=== PATIENT | male | born 1955 | race Caucasian/White ===

== ENCOUNTER 2016-06-15 19:10 | Inpatient (IN) | payer MEDICARE ==
[~2016-06-15] VITALS: Ht 167.6 cm; Wt 58.1 kg
[2016-06-15] MEDS ORDERED: NALOXONE HCL 0.4 MG/ML AMPUL ONE ×2 (19:58→21:25)
[2016-06-15] MEDS ORDERED: NALOXONE HCL 0.4 MG/ML AMPUL IV ONE (20:00)
[2016-06-15] MEDS ORDERED: IV SET PRIMARY 1 EA INFUS.SET MC ONE (20:46)
[2016-06-15] MEDS ORDERED: IV NS 0.9% 500 ML IV ONE (20:46)
[2016-06-15 20:59] LABS: BASOPHILS # (AUTO) 0.2 /CMM (0.0-0.2); DIFF TOTAL % 100 %; EOSINOPHILS % (AUTO) 0.2 % (0.0-6.0); HEMATOCRIT 27 % (39-51); HEMOGLOBIN 8.3 g/dL (13.5-17.5); LYMPHOCYTES # (AUTO) 0.7 /CMM (0.8-4.8); LYMPHOCYTES % (AUTO) 4.6 % (20.0-44.0); MEAN CORPUSCULAR HEMOGLOBIN 21 PG (26.0-33.0); MEAN CORPUSCULAR HGB CONC 31 g/dl (31.0-36.0); MEAN CORPUSCULAR VOLUME 68 fL (80-96); MONOCYTES # (AUTO) 0.4 /CMM (0.1-1.30); MONOCYTES % (AUTO) 2.6 % (2.0-12.0); NEUTROPHILS # (AUTO) 14.1 /CMM (1.8-8.9); NEUTROPHILS % (AUTO) 91.6 % (43.0-81.0); PLATELET COUNT (AUTO) 346 /CMM (150-450); RED BLOOD CELL COUNT(AUTO) 3.95 MIL/uL (4.5-6.0); WHITE BLOOD COUNT (AUTO) 15.4 K/uL (4.3-11.0)
[2016-06-15] MEDS ORDERED: NALOXONE HCL 2 MG in IV D5W 245 ML IV PRN ×2 (21:00→23:00)
[2016-06-15] MEDS ORDERED: IV NS 0.9% 500 ML BAG IV ONE (21:00)
[2016-06-15 21:16] LABS: TROPONIN I < 0.017 ng/mL (0.00-0.056)
[2016-06-15 21:20] LABS: ANION GAP 17 (5-14); CALCIUM, SERUM 9.2 mg/dL (8.5-10.1); CARBON DIOXIDE 23 mmol/L (21-32); CHLORIDE 98 mmol/L (98-107); CREATININE 2.1 mg/dL (0.6-1.3); GFR 32 mL/min (>60); GLUCOSE 108 mg/dL (74-106); POTASSIUM 4.8 mmol/L (3.5-5.1); SODIUM SERUM 133 mmol/L (136-145); UREA NITROGEN, BLOOD 67 mg/dL (7-18)
[2016-06-15] MEDS ORDERED: IV D5W 0 ML IV ONE (21:26)
[2016-06-15] MEDS ORDERED: IV SET PRIMARY PUMP SET 1 EA INFUS.SET MC ONE (21:26)
[2016-06-15] MEDS ORDERED: IV D5W 250 ML IV ONE (21:30)
[2016-06-15 21:37] LABS: LACTIC ACID 1.4 mmol/L (0.4-2.0)
[2016-06-15 21:38] LABS: LYMPHOCYTES % (MANUAL) 3 % (16-48); PLATELET ESTIMATE ADEQUATE
[2016-06-15 21:40] LABS: ANISOCYTOSIS 1+; HYPOCHROMASIA SLT
[2016-06-15] MEDS ORDERED: ACETAMINOPHEN 325 MG TABLET PO PRN (23:00)
[2016-06-15] MEDS: ENOXAPARIN SODIUM 40 MG/0.4 ML DISP.SYRIN SQ SCH (23:00)
[2016-06-15] MEDS ORDERED: MAG HYDROX/AL HYDROX/SIMETH 30 ML UDC PO PRN (23:00)
[2016-06-15] MEDS ORDERED: ONDANSETRON HCL/PF 4 MG/2 ML VIAL IVP PRN (23:00)
[2016-06-15] MEDS ORDERED: LEVOFLOXACIN 750 MG /D5W 150ML 750 MG in PREMIX 1 EA IV SCH (23:00)
[2016-06-15] MEDS ORDERED: MAGNESIUM HYDROXIDE 30 ML UDC PO PRN (23:00)
[2016-06-15] MEDS ORDERED: ZOLPIDEM TARTRATE 5 MG TABLET PO PRN (23:00)
[2016-06-15] MEDS ORDERED: Z GUARD REMEDY 2 OZ OINT TP PRN (23:00)
[2016-06-15 23:32] VITALS: BP 105/54
[2016-06-15 23:42] VITALS: BP 105/54
[2016-06-16] VITALS (74 sets, daily range): BP systolic 37–146; BP diastolic 22–78
[2016-06-16] MEDS ORDERED: PIPERACILLIN /TAZOBACTAM 3.375 G VIAL IV ONE ×2 (00:06→04:48)
[2016-06-16] MEDS ORDERED: IV D5W 50 ML IV ONE ×2 (00:07→04:48)
[2016-06-16] MEDS ORDERED: IV SET PRIMARY PUMP SET 1 EA INFUS.SET MC ONE ×4 (00:07→13:10)
[2016-06-16] MEDS ORDERED: IV NS 0.9% 1,000 ML ONE (00:07)
[2016-06-16] MEDS ORDERED: SECONDARY IV SET 1 EA INFUS.SET MC ONE (00:08)
[2016-06-16] MEDS ORDERED: LEVOFLOXACIN 750 MG /D5W 150ML 150 ML IV ONE (00:14)
[2016-06-16] MEDS ORDERED: ONDANSETRON HCL/PF 4 MG/2 ML VIAL ONE (00:23)
[2016-06-16] MEDS: IV NS 0.9% 1,000 ML IV PRN ×4 (00:25→22:17)
[2016-06-16] MEDS: PIPERACILLIN /TAZOBACTAM 3.375 G in IV D5W 50 ML IV SCH ×4 (00:27→17:14)
[2016-06-16] MEDS: ENOXAPARIN SODIUM 40 MG/0.4 ML DISP.SYRIN SQ SCH (00:28)
[2016-06-16] MEDS ORDERED: IV D5W 250 ML IV ONE (02:55)
[2016-06-16 04:51] LABS: BASOPHILS % (AUTO) 0.2 % (0.0-2.0); DIFF TOTAL % 100 %; EOSINOPHILS % (AUTO) 0.2 % (0.0-6.0); LYMPHOCYTES # (AUTO) 0.4 /CMM (0.8-4.8); LYMPHOCYTES % (AUTO) 3.9 % (20.0-44.0); MEAN CORPUSCULAR HEMOGLOBIN 21 PG (26.0-33.0); MEAN CORPUSCULAR HGB CONC 31 g/dl (31.0-36.0); MEAN CORPUSCULAR VOLUME 68 fL (80-96); MONOCYTES # (AUTO) 0.6 /CMM (0.1-1.30); MONOCYTES % (AUTO) 5.8 % (2.0-12.0); NEUTROPHILS # (AUTO) 9.9 /CMM (1.8-8.9); NEUTROPHILS % (AUTO) 89.9 % (43.0-81.0); PLATELET COUNT (AUTO) 345 /CMM (150-450); RED BLOOD CELL COUNT(AUTO) 2.48 MIL/uL (4.5-6.0)
[2016-06-16 04:52] LABS: HEMATOCRIT 17 % (39-51)
[2016-06-16 04:54] LABS: HEMOGLOBIN 5.3 g/dL (13.5-17.5)
[2016-06-16 05:01] LABS: CALCIUM, SERUM 7.7 mg/dL (8.5-10.1); CREATININE 1.6 mg/dL (0.6-1.3); PHOSPHORUS 2.8 mg/dL (2.5-4.9); POTASSIUM 4.9 mmol/L (3.5-5.1)
[2016-06-16] MEDS ORDERED: PANTOPRAZOLE 40 MG VIAL ONE (05:22)
[2016-06-16] MEDS ORDERED: IV NS 0.9% 500 ML IV ONE (05:22)
[2016-06-16] MEDS: PANTOPRAZOLE 80 MG in IV NS 0.9% 500 ML IV PRN ×3 (05:33→22:17)
[2016-06-16 05:43] LABS: ANISOCYTOSIS 2+; BAND % (MANUAL) 4 % (0.0-5.0); BASOPHILS % (MANUAL) 0 % (0.0-2.0); EOSINOPHILS % (MANUAL) 0 % (0-4); HYPOCHROMASIA 3+; LYMPHOCYTES % (MANUAL) 2 % (16-48); MICROCYTOSIS 2+; PLATELET ESTIMATE ADEQUATE
[2016-06-16] MEDS ORDERED: SENN8.6T6 PO (07:59)
[2016-06-16] MEDS ORDERED: BISA10SU8 RC (07:59)
[2016-06-16] MEDS ORDERED: ONDA-25 PO (07:59)
[2016-06-16] MEDS ORDERED: LISI-603 PO (07:59)
[2016-06-16] MEDS ORDERED: ASCO500T9 PO (07:59)
[2016-06-16] MEDS ORDERED: FERR325T28 PO (07:59)
[2016-06-16] MEDS ORDERED: NA P133E RC (07:59)
[2016-06-16] MEDS ORDERED: ACET-868 PO (07:59)
[2016-06-16] MEDS ORDERED: HYDR4TAB57 PO (07:59)
[2016-06-16] MEDS ORDERED: MAGN400O6 PO (07:59)
[2016-06-16] MEDS ORDERED: DIAZ10TA4 PO (07:59)
[2016-06-16] MEDS ORDERED: PANT40TA4 PO (07:59)
[2016-06-16] MEDS ORDERED: HEPARIN SODIUM, PORCINE 5000 UNITS/1 ML VIAL SQ SCH (09:00)
[2016-06-16] MEDS ORDERED: PANTOPRAZOLE 40 MG VIAL IV SCH (09:00)
[2016-06-16] MEDS ORDERED: IV NS 0.9% 250 ML IV ONE ×2 (10:10→17:48)
[2016-06-16] MEDS ORDERED: BLOOD IV SET 1 EA INFUS.SET MC ONE ×2 (10:10→17:48)
[2016-06-16] MEDS ORDERED: Magnesium 1GM/D5W 100ML PREMIX 100 ML IV SCH (13:01)
[2016-06-16 15:59] LABS: ABG BASE EXCESS -6.9 mmol/L; ABG HCO3 18.4 mmol/L; ABG PCO2 35.8 mmHg (35.0-45.0); ABG PH 7.329 (7.350-7.450); ABG TOTAL HEMOGLOBIN 7.3 G/dL (13.5-18.0); ALLEN TEST Pass; AaDO2 195.9 mmHg; O2Hb 91.1 % (94.0-97.0)
[2016-06-16] MEDS: IPRATROPIUM NEB FS 0.5 MG/2.5 ML AMPUL.NEB NEB SCH (16:29)
[2016-06-16] MEDS: ALBUTEROL HALF STRENGTH 1.25 MG/3 ML VIAL.NEB NEB SCH (16:29)
[2016-06-17] VITALS (23 sets, daily range): BP systolic 113–171; BP diastolic 57–90
[2016-06-17] MEDS: PIPERACILLIN /TAZOBACTAM 3.375 G in IV D5W 50 ML IV SCH ×4 (00:37→17:39)
[2016-06-17 05:02] LABS: BASOPHILS % (AUTO) 0.1 % (0.0-2.0); DIFF TOTAL % 100 %; EOSINOPHILS # (AUTO) 0.1 /CMM (0.0-0.7); EOSINOPHILS % (AUTO) 0.9 % (0.0-6.0); HEMATOCRIT 23 % (39-51); HEMOGLOBIN 7.4 g/dL (13.5-17.5); LYMPHOCYTES # (AUTO) 0.7 /CMM (0.8-4.8); LYMPHOCYTES % (AUTO) 5.8 % (20.0-44.0); MEAN CORPUSCULAR HEMOGLOBIN 24 PG (26.0-33.0); MEAN CORPUSCULAR HGB CONC 32 g/dl (31.0-36.0); MEAN CORPUSCULAR VOLUME 77 fL (80-96); MONOCYTES # (AUTO) 0.9 /CMM (0.1-1.30); MONOCYTES % (AUTO) 7.6 % (2.0-12.0); NEUTROPHILS # (AUTO) 10.2 /CMM (1.8-8.9); NEUTROPHILS % (AUTO) 85.6 % (43.0-81.0); PLATELET COUNT (AUTO) 305 /CMM (150-450); RED BLOOD CELL COUNT(AUTO) 3.07 MIL/uL (4.5-6.0); WHITE BLOOD COUNT (AUTO) 11.9 K/uL (4.3-11.0)
[2016-06-17 05:26] LABS: INR 1.06 (0.87-1.13); PROTHROMBIN TIME 11.5 SECS (9.5-12.7)
[2016-06-17 05:28] LABS: CALCIUM, SERUM 7.5 mg/dL (8.5-10.1); CREATININE 1.1 mg/dL (0.6-1.3); PHOSPHORUS 2.3 mg/dL (2.5-4.9); POTASSIUM 4.3 mmol/L (3.5-5.1)
[2016-06-17 05:55] LABS: ANISOCYTOSIS 2+; HELMET CELLS 1+; HYPOCHROMASIA 2+; MICROCYTOSIS 1+; TEAR DROP CELLS 1+
[2016-06-17 05:56] LABS: PLATELET ESTIMATE ADEQUATE
[2016-06-17] MEDS: ALBUTEROL HALF STRENGTH 1.25 MG/3 ML VIAL.NEB NEB SCH ×6 (07:35→22:58)
[2016-06-17] MEDS: IPRATROPIUM NEB FS 0.5 MG/2.5 ML AMPUL.NEB NEB SCH ×6 (07:35→22:58)
[2016-06-17] MEDS: IV NS 0.9% 1,000 ML IV PRN (08:55)
[2016-06-17] MEDS: PANTOPRAZOLE 80 MG in IV NS 0.9% 500 ML IV PRN ×2 (08:55→19:50)
[2016-06-17] MEDS ORDERED: IV NS 0.9% 1,000 ML IV PRN (09:14)
[2016-06-17] MEDS ORDERED: HYDROMORPHONE 1 MG/1 ML DISP.SYRIN IV PRN (10:00)
[2016-06-17] MEDS ORDERED: Sodium Phosphate 15 MMOL in IV D5W 250 ML IV ONE (10:00)
[2016-06-17] MEDS ORDERED: HYDROMORPHONE 1 MG/1 ML DISP.SYRIN IV ONE (10:00)
[2016-06-17] MEDS ORDERED: SECONDARY IV SET 1 EA INFUS.SET MC ONE ×2 (10:05→10:54)
[2016-06-17] MEDS ORDERED: IV SET PRIMARY PUMP SET 1 EA INFUS.SET MC ONE ×3 (10:05→21:30)
[2016-06-17] MEDS: IV D5/ 0.9% NACL 1,000 ML IV PRN ×2 (10:09→19:15)
[2016-06-17] MEDS: Magnesium 1GM/D5W 100ML PREMIX 100 ML IV SCH ×2 (10:09→10:58)
[2016-06-17] MEDS: Thiamine 100 MG in IV D5W 50 ML IV SCH (10:52)
[2016-06-17] MEDS: Folic acid 1 MG in IV D5W 50 ML IV SCH (11:22)
[2016-06-17 14:35] LABS: ALBUMIN 1.7 g/dL (3.4-5.0); BILIRUBIN,DIRECT 0.2 mg/dL (0.0-0.2); BILIRUBIN,TOTAL 0.6 mg/dL (0.2-1.0); INDIRECT BILIRUBIN 0.4 mg/dL (0.0-1.1)
[2016-06-17] MEDS ORDERED: PEG 3350/NA SULF,BICARB,CL/KCL 4,000 ML BOTTLE PO ONE (20:00)
[2016-06-17] MEDS ORDERED: NALOXONE HCL 0.4 MG/ML AMPUL ONE (20:08)
[2016-06-17] MEDS ORDERED: NALOXONE HCL 0.4 MG/ML AMPUL IV STA (20:17)
[2016-06-17 21:35] LABS: ABG BASE EXCESS -9.4 mmol/L; ABG HCO3 21.5 mmol/L; ABG PCO2 79.4 mmHg (35.0-45.0); ABG PH 7.051 (7.350-7.450); ABG PO2 114.9 mmHg (75.0-100.0); ABG TOTAL HEMOGLOBIN 9.8 G/dL (13.5-18.0); ALLEN TEST Pass; AaDO2 518.7 mmHg
[2016-06-17] MEDS: NALOXONE HCL 2 MG in IV D5W 245 ML IV PRN (22:03)
[2016-06-17] MEDS ORDERED: LEVOFLOXACIN 750 MG /D5W 150ML 750 MG in PREMIX 1 EA IV SCH (23:00)
[2016-06-18] VITALS (13 sets, daily range): BP systolic 128–181; BP diastolic 52–83
[2016-06-18] MEDS: NALOXONE HCL 2 MG in IV D5W 245 ML IV PRN (00:46)
[2016-06-18] MEDS: PIPERACILLIN /TAZOBACTAM 3.375 G in IV D5W 50 ML IV SCH ×3 (00:47→12:00)
[2016-06-18] MEDS ORDERED: ZOLPIDEM TARTRATE 5 MG TABLET ONE (01:55)
[2016-06-18] MEDS ORDERED: ZOLPIDEM TARTRATE 5 MG TABLET PO PRN (02:00)
[2016-06-18] MEDS: ALBUTEROL HALF STRENGTH 1.25 MG/3 ML VIAL.NEB NEB SCH ×3 (03:23→11:30)
[2016-06-18] MEDS: IPRATROPIUM NEB FS 0.5 MG/2.5 ML AMPUL.NEB NEB SCH ×3 (03:23→11:30)
[2016-06-18] MEDS: IV D5/ 0.9% NACL 1,000 ML IV PRN (04:07)
[2016-06-18] MEDS: PANTOPRAZOLE 80 MG in IV NS 0.9% 500 ML IV PRN (04:52)
[2016-06-18 09:48] LABS: DIFF TOTAL % 100 %; EOSINOPHILS # (AUTO) 0.1 /CMM (0.0-0.7); EOSINOPHILS % (AUTO) 0.6 % (0.0-6.0); HEMATOCRIT 23 % (39-51); HEMOGLOBIN 7.5 g/dL (13.5-17.5); LYMPHOCYTES # (AUTO) 0.6 /CMM (0.8-4.8); LYMPHOCYTES % (AUTO) 4.6 % (20.0-44.0); MEAN CORPUSCULAR HEMOGLOBIN 25 PG (26.0-33.0); MEAN CORPUSCULAR HGB CONC 33 g/dl (31.0-36.0); MEAN CORPUSCULAR VOLUME 75 fL (80-96); MONOCYTES # (AUTO) 0.8 /CMM (0.1-1.30); MONOCYTES % (AUTO) 6.4 % (2.0-12.0); NEUTROPHILS % (AUTO) 88.4 % (43.0-81.0); PLATELET COUNT (AUTO) 408 /CMM (150-450); RED BLOOD CELL COUNT(AUTO) 3.05 MIL/uL (4.5-6.0); WHITE BLOOD COUNT (AUTO) 12.4 K/uL (4.3-11.0)
[2016-06-18 10:05] LABS: CALCIUM, SERUM 7.8 mg/dL (8.5-10.1); PHOSPHORUS 1.9 mg/dL (2.5-4.9); POTASSIUM 3.6 mmol/L (3.5-5.1)
[2016-06-18] MEDS ORDERED: SECONDARY IV SET 1 EA INFUS.SET MC ONE (11:10)
[2016-06-18] MEDS: Folic acid 1 MG in IV D5W 50 ML IV SCH (11:15)
[2016-06-18] MEDS: Thiamine 100 MG in IV D5W 50 ML IV SCH (11:15)
[2016-06-19] MEDS ORDERED: PANTOPRAZOLE 40 MG TABLET.DR PO SCH (07:30)
== END 2016-06-18 13:43 | disposition left against medical advice (07) | DRG 871 ==
LOC: ER 19:13 → ICU 22:29
PROVIDERS: ADMIT Family Medicine; ATTEND Family Medicine
PROC: 30233N1 Transfusion of Nonautologous Red Blood Cells into Peripheral Vein, Percutaneous Approach (ICD-10-PCS; 2016-06-16)
PROC: 05H533Z Insertion of Infusion Device into Right Subclavian Vein, Percutaneous Approach (ICD-10-PCS; 2016-06-16)
PROC: 0DB58ZX Excision of Esophagus, Via Natural or Artificial Opening Endoscopic, Diagnostic (ICD-10-PCS; principal; 2016-06-17 11:30)
DX: A41.9 Sepsis, unspecified organism (principal); N17.0 Acute kidney failure with tubular necrosis; J69.0 Pneumonitis due to inhalation of food and vomit; G92 Toxic encephalopathy; J96.91 Respiratory failure, unspecified with hypoxia; K27.4 Chronic or unspecified peptic ulcer, site unspecified, with hemorrhage; K22.11 Ulcer of esophagus with bleeding; E87.1 Hypo-osmolality and hyponatremia; J90 Pleural effusion, not elsewhere classified; D50.9 Iron deficiency anemia, unspecified; F11.10 Opioid abuse, uncomplicated; F17.210 Nicotine dependence, cigarettes, uncomplicated; G89.4 Chronic pain syndrome; I10 Essential (primary) hypertension; T40.2X4A Poisoning by other opioids, undetermined, initial encounter; Y92.89 Other specified places as the place of occurrence of the external cause; D72.825 Bandemia; F10.20 Alcohol dependence, uncomplicated; K44.9 Diaphragmatic hernia without obstruction or gangrene; R65.20 Severe sepsis without septic shock
CPT/HCPCS: 36415; 36600; 70450-TC; 71010-TC; 80048-TC; 80076-TC; 82746; 82803-TC; 82962-TC; 83540-TC; 83605-TC; 83735-TC; 84100-TC; 84484-TC; 85025-TC; 85610-TC; 85730-TC; 86850-TC; 86921-TC; 87040-TC; 87081-TC; 88305-TC; 88313-TC; 88342; 92611-TC; 94799-TC; A4216; A4606; A6402; A9563; C9113; J1170; J1956; J2310; J2405; J2543; J3411; J3475; J3490; J7030; J7040; J7042; J7050; J7060; P9016-BL; Z7610

== ENCOUNTER 2017-07-23 22:25 | Inpatient (IN) | payer MEDICARE ==
[~2017-07-23] VITALS: Ht 177.8 cm; Wt 55.8 kg
[2017-07-23 22:00] VITALS: BP 126/72
--- NOTE | 2017-07-23 22:15 | NUR ---
RECIEVED FROM [facility] AWAKE AND ALERT ORIENTATED X4 FALLS TO SLEEP DURING CONVERSATION. WHEN AWAKE WILL ASK MULTIPLE TIMES i NEED SOMETHING FOR PAIN. REMINDINDING HIM FREQUENTLY ABOUT THE PROCESS I ADMIT HIM I CALL THE MD PHARMACY PLACES THE ORDER AND I WILL GIVE IT. THE MD CAME TO SEE HIM AND ORDERED MEDICATIONS.
[~2017-07-23 22:25] MED LIST: ACET-868 PO; ASCO500T9 PO; BISA10SU8 RC; DIAZ10TA4 PO; FERR325T28 PO; HYDR4TAB57 PO; LISI-603 PO; MAGN400O6 PO; NA P133E RC; ONDA4TAB10 PO; PANT40TA4 PO; SENN-167 PO
[2017-07-23 23:21] VITALS: BP 126/72
[2017-07-24] MEDS ORDERED: ONDANSETRON HCL/PF 4 MG/2 ML VIAL IVP PRN (01:30)
[2017-07-24] MEDS ORDERED: IPRATROPIUM NEB FS 0.5 MG/2.5 ML AMPUL.NEB NEB PRN (01:30)
[2017-07-24] MEDS ORDERED: DIAZEPAM 5 MG/ML 2 ML DISP.SYRIN IM PRN (01:30)
[2017-07-24] MEDS ORDERED: ALBUTEROL FS 2.5 MG/3 ML VIAL.NEB NEB PRN (01:30)
[2017-07-24] MEDS ORDERED: ACETAMINOPHEN 650 MG/SUPP.RECT RC PRN (01:30)
[2017-07-24] MEDS ORDERED: HYDROMORPHONE INJ 2 MG/ML DISP.SYRIN ONE ×2 (02:06→04:59)
[2017-07-24] MEDS: IV D5/ 0.9% NACL 1,000 ML IV SCH ×2 (02:10→15:13)
[2017-07-24] MEDS: HYDROMORPHONE INJ 2 MG/ML DISP.SYRIN IV PRN ×2 (02:11→05:15)
[2017-07-24] MEDS: ALBUTEROL FS 2.5 MG/3 ML VIAL.NEB NEB SCH ×6 (02:49→23:30)
[2017-07-24 06:59] LABS: ALBUMIN 2.4 g/dL (3.4-5.0); BILIRUBIN,TOTAL 0.2 mg/dL (0.2-1.0); CALCIUM, SERUM 8.4 mg/dL (8.5-10.1); CREATININE 0.9 mg/dL (0.6-1.3); MAGNESIUM 1.8 mg/dL (1.8-2.4); PHOSPHORUS 3.2 mg/dL (2.5-4.9); POTASSIUM 4.7 mmol/L (3.5-5.1); TOTAL PROTEIN, SERUM 6.8 g/dL (6.4-8.2)
--- NOTE | 2017-07-24 07:23 | NUR ---
pATIENTS IV LEFT AC INFILTRATED [address] A NEW IV SITE ER NURSE ATTEMPTED UNSUCCESSFULLY NURSE STARTED 24 G RT HAND IV CONTINUED AND iv DILADID GIVEN. PATIENT IS VERBALLY CONDESENDING WHEN THINGS AROUND HIM ARE NOT GOING ON TIME THEN WILL PRAISE AND THANKYOU WHEN THINGS GO CORRECT. MEDICATED ORDERED. RIGHT LEG BENT AT THE KNEE NOT ABLE TO STRAIGHTENED SEEN BY MD COLLINS
[2017-07-24 08:00] VITALS: BP 114/52
[2017-07-24] MEDS ORDERED: FEE PK DOSING 1 MIN EA MC ONE (08:35)
[2017-07-24] MEDS: FAMOTIDINE/PF INJ 20 MG/2 ML VIAL IV SCH ×2 (09:08→21:20)
--- NOTE | 2017-07-24 09:15 | NUR ---
MS RN NOTES PATIENT IN BED, AWAKE. A/O X3, FORGETFUL, REORIENTED. OXYGEN SAT 96% IN RA, NO SOB. REPORTED PAIN IN HIS RIGHT KNEE, MEDICATED WITH DILAUDID 1.5MG IV PRN, WILL REASSESS. CURRENTLY NPO STATUS, FOR ORTHO CONSULT. PLACE CALL LIGHT WITHIN WILL CONT TO MONITOR.
[2017-07-24] MEDS: HYDROMORPHONE INJ 0.5 MG/0.5 ML SYRINGE IV PRN ×5 (09:17→21:21)
[2017-07-24] MEDS: VANCOMYCIN 1 GM in IV D5W 250 ML IV SCH ×2 (10:30→21:21)
[2017-07-24 11:18] LABS: BASOPHILS % (AUTO) 0.2 % (0.0-2.0); EOSINOPHILS # (AUTO) 0.2 /CMM (0.0-0.7); EOSINOPHILS % (AUTO) 3.2 % (0.0-6.0); HEMATOCRIT 25 % (39-51); HEMOGLOBIN 8.1 g/dL (13.5-17.5); LYMPHOCYTES # (AUTO) 0.8 /CMM (0.8-4.8); LYMPHOCYTES % (AUTO) 11.1 % (20.0-44.0); MEAN CORPUSCULAR HEMOGLOBIN 26 PG (26.0-33.0); MEAN CORPUSCULAR HGB CONC 33 g/dl (31.0-36.0); MEAN CORPUSCULAR VOLUME 80 fL (80-96); MONOCYTES # (AUTO) 1.2 /CMM (0.1-1.30); NEUTROPHILS # (AUTO) 4.7 /CMM (1.8-8.9); NEUTROPHILS % (AUTO) 67.5 % (43.0-81.0); PLATELET COUNT (AUTO) 133 /CMM (150-450); RDW COEFFICIENT OF VARIATION 20.3 (11.5-15.0); WHITE BLOOD COUNT (AUTO) 6.9 K/uL (4.3-11.0)
[2017-07-24 11:29] LABS: ALBUMIN 2.5 g/dL (3.4-5.0); BILIRUBIN,TOTAL 0.2 mg/dL (0.2-1.0); CALCIUM, SERUM 8.6 mg/dL (8.5-10.1); CREATININE 0.9 mg/dL (0.6-1.3); MAGNESIUM 1.9 mg/dL (1.8-2.4); POTASSIUM 4.2 mmol/L (3.5-5.1); TOTAL PROTEIN, SERUM 6.8 g/dL (6.4-8.2)
[2017-07-24 13:12] LABS: EOSINOPHILS % (MANUAL) 2 % (0-4); LYMPHOCYTES % (MANUAL) 3 % (16-48); MONOCYTES % (MANUAL) 12 % (0-11.0); NEUTROPHILS % (MANUAL) 83 (42-76)
[2017-07-24 14:40] LABS: INR 0.96 (0.87-1.13)
[2017-07-24 16:00] VITALS: BP 131/71
--- NOTE | 2017-07-24 16:06 | NUR ---
RT NOTE PT REFUSED BREATHING TX TROUGHOUT SHIFT. PT STATES THE TX GIVES HIM HEAD ACHE. PT SPO2 AND BREATH SOUNDS MONITORED. NO DISTRESS NOTED. Addendum: 07/24/17 at 1609 by OMAR JAQUEZ RT Amended: Links added.
[2017-07-24 17:15] VITALS: BP 131/71
--- NOTE | 2017-07-24 18:27 | NUR ---
MS RN CLOSING NOTES PATIENT IN BED, A/O X3, FORGETFUL AT TIMES, REORIENTED. MIDLINE EDY INSERTED TODAY BY SONDRA/RN. REQUESTED COPIES OF MEDICAL RECORDS/EGD FROM [facility], CONSENTED BY PATIENT. PATIENT IS SEEN BY DR. NEGRON TODAY FOR CONSULT, NO SURGICAL INTERVENTION, NWB RLE PER ORHTO. MEDICATED PATIENT WITH DILAUDID 1.5MG IVP PRN Q 3HOURS, COMFORTABLE IN BED. CALL LIGHT WITHIN REACH. WILL ENDORSE TO ONCOMING RN.
--- NOTE | 2017-07-24 19:30 | NUR ---
MS RN OPENING NOTES RECEIVED PATIENT RESTING COMFORTABLY IN BED, A/Ox4. ON RA, DENIES SOB, RESPIRATIONS EVEN AND UNLABORED. NO APPARENT DISTRESS OR DISCOMFORT NOTED, DENIES PAIN AT THIS TIME. LAST PAIN MEDICATION GIVEN AT 1814 BY [facility] NURSE. RIGHT UPPER ARM MIDLINE, PATIENT AND INTACT WITH IV FLUIDS INFUSING @ 80 ML/HR. PATIENT KEPT CLEAN. SAFETY MEASURES IN PLACE: CALL LIGHT WITHIN EASY REACH, BED IN LOW LOCKED POSITION, SIDE RAILS UP x2. WILL CONTINUE TO MONITOR.
--- NOTE | 2017-07-24 19:33 | NUR ---
pt refused tx. alicia eaton aware Addendum: 07/24/17 at 1934 by DEONTE DONIS RT Amended: Links added.
[2017-07-24 20:00] VITALS: BP 120/66
[2017-07-25] MEDS ORDERED: HYDROMORPHONE INJ 0.5 MG/0.5 ML SYRINGE ONE (00:48)
[2017-07-25] MEDS: HYDROMORPHONE INJ 0.5 MG/0.5 ML SYRINGE IV PRN ×6 (00:58→21:21)
[2017-07-25] MEDS: ALBUTEROL FS 2.5 MG/3 ML VIAL.NEB NEB SCH ×6 (03:00→23:45)
[2017-07-25] MEDS ORDERED: HYDROMORPHONE INJ 2 MG/ML DISP.SYRIN ONE (04:12)
--- NOTE | 2017-07-25 04:20 | NUR ---
DILAUDID 1.5 MG GIVEN AT 0412 FOR SEVERE PAIN OF 8/10. SCANNED 2MG/ML VIAL MEDICATION WITH A SMALLER DOSE IS NOT AVAILABLE ON THE FLOOR. ADMINISTERED THE ORDERED DOSE AND WASTED THE OTHER 0.5 MG.
[2017-07-25] MEDS: IV D5/ 0.9% NACL 1,000 ML IV SCH (06:10)
[2017-07-25 06:51] LABS: BASOPHILS % (AUTO) 0.7 % (0.0-2.0); EOSINOPHILS # (AUTO) 0.2 /CMM (0.0-0.7); EOSINOPHILS % (AUTO) 4.2 % (0.0-6.0); HEMATOCRIT 23 % (39-51); HEMOGLOBIN 7.4 g/dL (13.5-17.5); LYMPHOCYTES # (AUTO) 0.9 /CMM (0.8-4.8); LYMPHOCYTES % (AUTO) 14.8 % (20.0-44.0); MEAN CORPUSCULAR HEMOGLOBIN 26 PG (26.0-33.0); MEAN CORPUSCULAR HGB CONC 32 g/dl (31.0-36.0); MEAN CORPUSCULAR VOLUME 80 fL (80-96); MONOCYTES # (AUTO) 1.2 /CMM (0.1-1.30); NEUTROPHILS # (AUTO) 3.5 /CMM (1.8-8.9); NEUTROPHILS % (AUTO) 60.3 % (43.0-81.0); PLATELET COUNT (AUTO) 315 /CMM (150-450); RDW COEFFICIENT OF VARIATION 20.6 (11.5-15.0); RED BLOOD CELL COUNT(AUTO) 2.89 MIL/uL (4.5-6.0); WHITE BLOOD COUNT (AUTO) 5.9 K/uL (4.3-11.0)
--- NOTE | 2017-07-25 06:52 | NUR ---
MS RN CLOSING NOTES PATIENT IN BED ASLEEP, EASILY AROUSED BY VERBAL STIMULI. ON RA, DENIES SOB, RESPIRATIONS EVEN AND UNLABORED. NO APPARENT DISTRESS OR DISCOMFORT NOTED, REPORTS PAIN AT THIS TIME REQUESTING DILAUDID, MEDICATION IS NOT DUE TILL 729. PATIENT IS INFORMED. LAST PAIN MEDICATION GIVEN AT 0425. RIGHT UPPER ARM MIDLINE, PATIENT AND INTACT WITH IV FLUIDS INFUSING @ 70 ML/HR. PATIENT KEPT CLEAN. SAFETY MEASURES IN PLACE: CALL LIGHT WITHIN EASY REACH, BED IN LOW LOCKED POSITION, SIDE RAILS UP x2. WILL ENDORSE TO MORNING SHIFT FOR CONTINUATION OF CARE. .
[2017-07-25 07:12] LABS: TROPONIN I < 0.017 ng/mL (0.00-0.056)
[2017-07-25 07:14] LABS: ALANINE AMINOTRANSFERASE 10 U/L (12-78); ALBUMIN 2.2 g/dL (3.4-5.0); ASPARTATE AMINOTRANSFERASE 15 U/L (15-37); BILIRUBIN,TOTAL 0.2 mg/dL (0.2-1.0); CARBON DIOXIDE 28 mmol/L (21-32); CHLORIDE 109 mmol/L (98-107); CREATININE 0.9 mg/dL (0.6-1.3); GLUCOSE 100 mg/dL (74-106); MAGNESIUM 1.9 mg/dL (1.8-2.4); PHOSPHORUS 3.1 mg/dL (2.5-4.9); POTASSIUM 4.4 mmol/L (3.5-5.1); SODIUM SERUM 144 mmol/L (136-145); TOTAL PROTEIN, SERUM 6.3 g/dL (6.4-8.2); UREA NITROGEN, BLOOD 15 mg/dL (7-18)
[2017-07-25 07:31] LABS: ALKALINE PHOSPHATASE 84 U/L (46-116); CALCIUM, SERUM 8.5 mg/dL (8.5-10.1)
--- NOTE | 2017-07-25 07:31 | NUR ---
MS RN OPENING NOTE PATIENT IS ALERT AND ORIENTED X3. NO PAIN AT THIS TIME RESTING COMFORTABLY. NO SOB OR DISTRESS NOTED. CALL LIGHT WITHIN REACH. SAFETY MEASURES IMPLEMENTED. ABLE TO COMMUNICATE NEEDS. BEDREST AT THIS TIME, AWAITING PHYSICAL THERAPY EVALUATION TODAY. RIGHT UPPER ARM MIDLINE INTACT AND PATENT WITH IV FLUIDS RUNNING AT 70 ML/HR TOLERATING WELL. ON ROOM AIR WITH 02 SATURATION ABOVE 92%. WILL CONTINUE TO MONITOR THROUGHOUT SHIFT
[2017-07-25 08:00] VITALS: BP 143/62
[2017-07-25] MEDS: FAMOTIDINE/PF INJ 20 MG/2 ML VIAL IV SCH (08:09)
[2017-07-25] MEDS: VANCOMYCIN 1 GM in IV D5W 250 ML IV SCH ×2 (08:09→21:37)
[2017-07-25 09:30] LABS: NEUTROPHILS % (MANUAL) 62 (42-76)
[2017-07-25 09:31] LABS: BAND % (MANUAL) 1 % (0.0-5.0); EOSINOPHILS % (MANUAL) 7 % (0-4); LYMPHOCYTES % (MANUAL) 11 % (16-48); MONOCYTES % (MANUAL) 19 % (0-11.0)
[2017-07-25] MEDS ORDERED: HYDROMORPHONE INJ 2 MG/ML DISP.SYRIN IV PRN (10:00)
[2017-07-25] MEDS ORDERED: PANTOPRAZOLE 40 MG TABLET.DR PO SCH (11:30)
[2017-07-25 12:01] LABS: FERRITIN 89 ng/mL (8-388)
--- NOTE | 2017-07-25 12:24 | NUR ---
Social service consult requested by Dr. Rodriguez for placement. SW referred pt. to behavioral health case manager Chinyere Meek for placement.
[2017-07-25 13:14] LABS: IRON, SERUM 14 ug/dl (50-175); TOTAL IRON BINDING CAPACITY 246 ug/dl (250-450)
--- NOTE | 2017-07-25 15:06 | NUR ---
MS RN NOTE RECEIVED CALLED FROM [facility]. PATIENT IS POSITIVE FOR MRSA NARES. ISOLATION IN PLACE. WILL CONTINUE TO MONITOR
[2017-07-25 16:00] VITALS: BP 139/72
--- NOTE | 2017-07-25 18:30 | NUR ---
MS RN CLOSING NOTE PATIENT IS ALERT AND ORIENTED x4. NO PAIN AT THIS TIME, PAIN MEDIATION RECEIVED EARLIER 10/10 PAIN ON RIGHT KNEE. NO SOB OR DISTRESS NOTED. CALL LIGHT WITHIN REACH AT ALL TIMES. SAFETY MEASURES IMPLEMENTED. ALL DUE MEDICATIONS GIVEN ORDERED. ALL NURSING CARE NEEDS ATTENDED NEEDED. ON ROOM AIR AT 93% O2 SAT TOLERATING WELL. ABLE TO COMMUNICATE NEEDS. EDY MIDLINE INTACT AND PATENT NO REDNESS OR SWELLING NOTED, NO IV FLUIDS AT THIS TIME. CONSENT FOR SMOKING OBTAINED AND PLACED IN CHART. WILL ENDORSE TO NURSING STAFFING COORDINATOR NURSE FOR SARI
--- NOTE | 2017-07-25 19:35 | NUR ---
RN OPENING NOTES RECEIVED REPORT FROM PHUONG RNCHRISTINE. FOUND Pt AWAKE, RESTING IN BED, WATCHING TV. NO S/S OF ACUTE DISTRESS OR SOB NOTED. Pt IS A/OX3, FORGETFUL AT TIMES, BUT IS VERBAL, AND ABLE TO MAKE NEEDS KNOWN. IV ACCESS ON EDY MIDLINE #18G, SL. SAFETY MEASURES IN PLACE. BED LOW, LOCKED, HOB ELEVATED, SIDE RAILS UP, CALL LIGHT AND BEDSIDE TABLE WITHIN REACH. WILL CONTINUE TO MONITOR Pt THROUGHOUT THE NIGHT FOR SAFETY.
[2017-07-25 20:00] VITALS: BP 129/65
[2017-07-25 21:00] VITALS: BP 129/65
[2017-07-25] MEDS ORDERED: MUPIROCIN OINT 2% 22 GM TUBE SCH (21:00)
[2017-07-26] MEDS: HYDROMORPHONE INJ 0.5 MG/0.5 ML SYRINGE IV PRN (01:03)
[2017-07-26] MEDS: ALBUTEROL FS 2.5 MG/3 ML VIAL.NEB NEB SCH ×2 (03:11→07:16)
--- NOTE | 2017-07-26 03:51 | NUR ---
RN NOTES SPOKE WITH DR. MCARTHUR ON THE PHONE. INFORMED HIM THAT THERE IS NO VALIUM ANYWHERE IN THE HOSPITAL. DR MCARTHUR ORDERED INSTEAD ATIVAN 1MG IVP Q8H PRN.
[2017-07-26] MEDS ORDERED: LORAZEPAM INJ 2 MG/ML VIAL IV PRN (04:00)
[2017-07-26] MEDS ORDERED: HYDROMORPHONE INJ 2 MG/ML DISP.SYRIN IV PRN (05:30)
[2017-07-26] MEDS ORDERED: HYDROMORPHONE INJ 2 MG/ML DISP.SYRIN ONE (05:50)
--- NOTE | 2017-07-26 06:35 | NUR ---
RN CLOSING NOTES NO SIGNIFICANT CHANGES IN Pt's CONDITION. Pt REMAINS IN STABLE CONDITION FOR MS. NO S/S OF ACUTE DISTRESS OR SOB NOTED. ALL NEEDS MET AND ATTENDED TO. SAFETY MEASURES IN PLACE. WILL ENDORSE TO DAYSHIFT RN FOR Pt's SARI.
[2017-07-26 06:45] LABS: CALCIUM, SERUM 8.6 mg/dL (8.5-10.1); CREATININE 0.9 mg/dL (0.6-1.3); MAGNESIUM 1.8 mg/dL (1.8-2.4); PHOSPHORUS 3.9 mg/dL (2.5-4.9); POTASSIUM 3.9 mmol/L (3.5-5.1)
[2017-07-26 07:00] LABS: BASOPHILS % (AUTO) 0.2 % (0.0-2.0); EOSINOPHILS # (AUTO) 0.2 /CMM (0.0-0.7); EOSINOPHILS % (AUTO) 3.2 % (0.0-6.0); HEMATOCRIT 23 % (39-51); HEMOGLOBIN 7.3 g/dL (13.5-17.5); LYMPHOCYTES # (AUTO) 0.9 /CMM (0.8-4.8); LYMPHOCYTES % (AUTO) 12.7 % (20.0-44.0); MEAN CORPUSCULAR HEMOGLOBIN 25 PG (26.0-33.0); MEAN CORPUSCULAR HGB CONC 32 g/dl (31.0-36.0); MEAN CORPUSCULAR VOLUME 79 fL (80-96); MONOCYTES # (AUTO) 1.1 /CMM (0.1-1.30); NEUTROPHILS # (AUTO) 4.8 /CMM (1.8-8.9); NEUTROPHILS % (AUTO) 67.9 % (43.0-81.0); PLATELET COUNT (AUTO) 361 /CMM (150-450); RDW COEFFICIENT OF VARIATION 19.9 (11.5-15.0); RED BLOOD CELL COUNT(AUTO) 2.87 MIL/uL (4.5-6.0); WHITE BLOOD COUNT (AUTO) 7.1 K/uL (4.3-11.0)
--- NOTE | 2017-07-26 07:20 | NUR ---
MS/RN OPENING NOTE RECEIVED PATIENT UP IN W/CHAIR. ALERT AND ORIENTED X4. RESPIRATION REGULAR AND UNLABORED. DENIES SOB, PAIN AT THIS TIME. IN NO APPARENT DISTRESS. RFA MIDLINE G 18 PATENT AND SALINE LOCKED. PATIENT. CALL LIGHT WITHIN REACH. WILL CONTINUE TO MONITOR.
--- NOTE | 2017-07-26 08:10 | NUR ---
MS/RN OPENING NOTE PATIENT REQUESTED TO LEAVE AMA. THE PATIENT WAS EDUCATED ABOUT RISKS OF AMA, AND ENCOURAGED TO WAIT TO BE SEEN BY MD AND FOLLOWING MD ORDERS, HOWEVER, THE PATIENT INSISTED TO LEAVE RIGHT NOW AND AMA. THE PATIENT SIGNED AMA FORM. LEFT THE HOSPITAL IN STABLE CONDITION.
== END 2017-07-26 09:00 | disposition left against medical advice (07) | DRG 533 ==
LOC: TELE2 22:25 → MEDSG2 07-24 01:29
PROVIDERS: ADMIT Internal Medicine; ATTEND Internal Medicine
PROC: 05H533Z Insertion of Infusion Device into Right Subclavian Vein, Percutaneous Approach (ICD-10-PCS; principal; 2017-07-24)
PROC: B546ZZA Ultrasonography of Right Subclavian Vein, Guidance (ICD-10-PCS; 2017-07-24)
DX: S72.301A Unspecified fracture of shaft of right femur, initial encounter for closed fracture (principal); E43 Unspecified severe protein-calorie malnutrition; R53.2 Functional quadriplegia; I50.32 Chronic diastolic (congestive) heart failure; I11.0 Hypertensive heart disease with heart failure; F11.20 Opioid dependence, uncomplicated; D50.9 Iron deficiency anemia, unspecified; F10.20 Alcohol dependence, uncomplicated; F17.200 Nicotine dependence, unspecified, uncomplicated; F41.9 Anxiety disorder, unspecified; G89.4 Chronic pain syndrome; W05.0XXA Fall from non-moving wheelchair, initial encounter; Y92.002 Bathroom of unspecified non-institutional (private) residence as the place of occurrence of the external cause; Z99.3 Dependence on wheelchair; M24.561 Contracture, right knee; K22.70 Barrett's esophagus without dysplasia; Z96.642 Presence of left artificial hip joint; Z96.651 Presence of right artificial knee joint; F32.9 Major depressive disorder, single episode, unspecified; Z79.899 Other long term (current) drug therapy
CPT/HCPCS: 36415; 36569; 71045-TC; 73502; 73552; 73564-TC; 80048-TC; 80053-TC; 80202-TC; 82728-TC; 83540-TC; 83735-TC; 84100-TC; 84484-TC; 85025-TC; 85730-TC; 87081-TC; 93307-TC; J1170; J2060; J2405; J3370; J3490; J7042; J7060; J7070; Z7610

== ENCOUNTER 2017-10-25 15:54 | Emergency (ER) | payer MEDICARE ==
[~2017-10-25] VITALS: Ht 177.8 cm; Wt 59.9 kg
[~2017-10-25 15:54] MED LIST changes: -DIAZ10TA4 PO; -HYDR4TAB57 PO
--- NOTE | 2017-10-25 16:00 | NUR ---
AAOX3, BIB RA FROM HOME,WORSENING CHRONIC LEG/BACK PAIN. RR IS EVEN AND UNLABORED WITH NAD NOTED. SKIN IS WARM AND DRY. AWAITING MD FOR EVAL.
--- NOTE | 2017-10-25 19:08 | NUR ---
REPORT REC'D FROM KARY MILES FOR SARI.
--- NOTE | 2017-10-25 21:31 | NUR ---
CALLING RESCUE TO SEE WHERE PT'S WHEEL CHAIR IS
--- NOTE | 2017-10-25 21:52 | NUR ---
Patient discharged to home in stable condition. Written and verbal after care instructions given. Patient verbalizes understanding of instruction. PT TAKEN TO THE LOBBY VIA WHEELCHAIR. PT'S WHEELCHAIR NOT WITH HIM. PER EMS, A FIXED INCOME PORTFOLIO MANAGER WAS ON SCENE WHEN PICKED UP AND WAS BRINGING PT'S WHEELCHAIR TO THE ER. STILL NO WHEELCHAIR. VSS.
[2017-10-25 21:56] VITALS: BP 117/65
--- NOTE | 2017-10-25 22:06 | NUR ---
PT IS AWAITING AN AMBULANCE TO TAKE HIM HOME. PT IS NOT ABLE TO WALK AND WE CAN NOT GET IN TOUCH WITH ANYONE TO BRING HIS WC. PT HAS HIS KEYS TO GET INTO THE [facility].
--- NOTE | 2017-10-25 22:10 | NUR ---
CALLED [facility] FOR TRANSPORT ETA OF 35 MINS WAS GIVEN. TRIP#[id number]
--- NOTE | 2017-10-25 22:52 | NUR ---
[facility] ARRIVED AND IS TRANSPORTING PT HOME. VSS
[2018-02-09] MEDS ORDERED: VITA1TAB56 PO (16:10)
[2018-02-09] MEDS ORDERED: HYDR8TAB2 PO (16:10)
[2018-02-09] MEDS ORDERED: THIA100T13 PO (16:10)
[2018-02-09] MEDS ORDERED: MIRT15TA7 PO (16:10)
[2018-02-09] MEDS ORDERED: MULT-447 PO (16:10)
[2018-02-09] MEDS ORDERED: LIDO30AD10 TP (16:10)
[2018-02-09] MEDS ORDERED: PREG25CA PO (16:10)
[2018-02-09] MEDS ORDERED: FOLI1TAB16 PO (16:10)
[2018-02-09] MEDS ORDERED: FLUO40CA8 PO (16:10)
[2018-02-09] MEDS ORDERED: BACL5TAB PO (16:10)
== END 2017-10-25 21:57 | disposition home or self-care (01) ==
LOC: ER 15:57
DX: F10.10 Alcohol abuse, uncomplicated (principal); I10 Essential (primary) hypertension; Z98.890 Other specified postprocedural states; Z60.2 Problems related to living alone
CPT/HCPCS: A4606; Z7610

== ENCOUNTER 2018-02-20 12:55 | Inpatient (IN) | payer MEDICARE, MEDICAID ==
[~2018-02-20] VITALS: Ht 180.3 cm; Wt 56.7 kg
[~2018-02-20 12:55] MED LIST changes: -ASCO500T9 PO; +BACL5TAB PO; -FERR325T28 PO; +FLUO40CA8 PO; +FOLI1TAB16 PO; +HYDR8TAB2 PO; +LIDO30AD10 TP; +MIRT15TA7 PO; +MULT-447 PO; -ONDA4TAB10 PO; +PREG25CA PO; +THIA100T13 PO; +VITA1TAB56 PO
--- NOTE | 2018-02-20 13:00 | NUR ---
PT BIB PRIVATE AMBULANCE TO ER BED 1. SENT BY PMD FOR LOW HEMOGLOBIN. PLACED ON MONITOR. AWAITING MD POOLE.
--- NOTE | 2018-02-20 13:15 | NUR ---
DR JAQUEZ AT BEDSIDE FOR EVAL.
[2018-02-20] MEDS ORDERED: IV NS 0.9% 1,000 ML BAG IV ONE (13:30)
--- NOTE | 2018-02-20 14:00 | NUR ---
AIR TOOL OPERATOR AT BEDSIDE FOR BLOOD DRAW.
[2018-02-20 14:18] LABS: BASOPHILS # (AUTO) 0.2 /CMM (0.0-0.2); BASOPHILS % (AUTO) 2.1 % (0.0-2.0); EOSINOPHILS % (AUTO) 3.5 % (0.0-6.0); HEMATOCRIT 26 % (39-51); HEMOGLOBIN 7.7 g/dL (13.5-17.5); LYMPHOCYTES # (AUTO) 1.8 /CMM (0.8-4.8); LYMPHOCYTES % (AUTO) 19.6 % (20.0-44.0); MEAN CORPUSCULAR HEMOGLOBIN 27 PG (26.0-33.0); MEAN CORPUSCULAR HGB CONC 30 g/dl (31.0-36.0); MEAN CORPUSCULAR VOLUME 90 fL (80-96); MONOCYTES # (AUTO) 1.1 /CMM (0.1-1.30); MONOCYTES % (AUTO) 12.3 % (2.0-12.0); NEUTROPHILS # (AUTO) 5.7 /CMM (1.8-8.9); NEUTROPHILS % (AUTO) 62.5 % (43.0-81.0); PLATELET COUNT (AUTO) 694 /CMM (150-450); RDW COEFFICIENT OF VARIATION 19.9 (11.5-15.0); RED BLOOD CELL COUNT(AUTO) 2.89 MIL/uL (4.5-6.0); WHITE BLOOD COUNT (AUTO) 9.2 K/uL (4.3-11.0)
[2018-02-20 14:26] LABS: CALCIUM, SERUM 8.5 mg/dL (8.5-10.1); CARBON DIOXIDE 23 mmol/L (21-32); CHLORIDE 104 mmol/L (98-107); CREATININE 1.3 mg/dL (0.6-1.3); GLUCOSE 71 mg/dL (74-106); POTASSIUM 4.6 mmol/L (3.5-5.1); SODIUM SERUM 138 mmol/L (136-145); UREA NITROGEN, BLOOD 31 mg/dL (7-18)
[2018-02-20] MEDS ORDERED: oxyCODONE/APAP (5/325 MG) 1 UDTAB TABLET PO ONE (14:30)
--- NOTE | 2018-02-20 14:30 | NUR ---
DR NOBLE AT BEDSIDE FOR BLOOD DRAW.
[2018-02-20 14:32] LABS: ALANINE AMINOTRANSFERASE 14 U/L (12-78); ALKALINE PHOSPHATASE 90 U/L (46-116); ASPARTATE AMINOTRANSFERASE 17 U/L (15-37); BILIRUBIN,TOTAL 0.1 mg/dL (0.2-1.0); TOTAL PROTEIN, SERUM 7.1 g/dL (6.4-8.2)
[2018-02-20 14:34] LABS: TROPONIN I < 0.017 ng/mL (0.00-0.056)
[2018-02-20 14:36] LABS: INR 0.89 (0.87-1.13)
[2018-02-20] MEDS ORDERED: PANTOPRAZOLE 40 MG VIAL ONE (14:43)
[2018-02-20] MEDS ORDERED: OCTREOTIDE 100 MCG/ML VIAL ONE (14:44)
[2018-02-20] MEDS ORDERED: oxyCODONE/APAP (5/325 MG) 1 UDTAB TABLET ONE (14:44)
--- NOTE | 2018-02-20 14:45 | NUR ---
PAGED EPIC RECONSTRUCTIVE DENTIST KORY
--- NOTE | 2018-02-20 14:45 | NUR ---
CALLED NURSING DIRECTOR GEOPHYSICAL LABORATORY AND REQUESTED A MED SURG BED FOR THIS PT.
[2018-02-20] MEDS ORDERED: PANTOPRAZOLE 40 MG VIAL IV ONE (15:00)
[2018-02-20] MEDS ORDERED: OCTREOTIDE 50 MCG/ML AMPUL IV ONE (15:00)
--- NOTE | 2018-02-20 15:40 | NUR ---
PT IS ASSIGNED TO MED SURG RM#: [id number], DX: UPPER GI BLEED / ANEMIA, AND ACCEPTING: KORY MALDONADO NP.
--- NOTE | 2018-02-20 15:51 | NUR ---
REPORT GIVEN TO OMAR PRESTON. PT AWAITING TRANSFER TO FLOOR.
[2018-02-20 16:00] VITALS: BP 96/50
[2018-02-20] MEDS ORDERED: Thiamine 100 MG in IV D5W 50 ML IV SCH (16:00)
[2018-02-20] MEDS ORDERED: Z GUARD REMEDY 2 OZ OINT TP PRN (16:00)
[2018-02-20] MEDS ORDERED: ACETAMINOPHEN 325 MG TABLET PO PRN (16:00)
[2018-02-20] MEDS ORDERED: ONDANSETRON HCL/PF 4 MG/2 ML VIAL IVP PRN (16:00)
[2018-02-20] MEDS ORDERED: MAG HYDROX/AL HYDROX/SIMETH 30 ML UDC PO PRN (16:00)
[2018-02-20] MEDS ORDERED: Folic acid 1 MG in IV D5W 50 ML IV SCH (16:00)
[2018-02-20] MEDS ORDERED: TEMAZEPAM 15 MG CAPSULE PO PRN (16:00)
[2018-02-20] MEDS ORDERED: MAGNESIUM HYDROXIDE 30 ML UDC PO PRN (16:00)
[2018-02-20] MEDS: CHLORDIAZEPOXIDE HCL 25 MG CAPSULE PO SCH (16:30)
[2018-02-20] MEDS: PANTOPRAZOLE 40 MG VIAL IV SCH (16:30)
[2018-02-20] MEDS: IV NS 0.9% 1,000 ML IV PRN (16:38)
--- NOTE | 2018-02-20 17:00 | NUR ---
RN MS INITIAL NOTES RECEIVED REPORT AND PATIENT FROM ER NURSE MICHELLE. A&O X4 GREEK SPEAKING, ON ROOM AIR SAT ABOVE 97% NO SOB OR ACUTE DISTRESS NOTED, PATIENT REFUSES TO [facility]PITAL GOWN AND ALSO REFUSING TO HAVE SKIN ASSESSMENT DONE, PATIENT IS VERY ANGRY WHEN TOUCHED AT TIMES, RIGHT SIDE EJ INTACT AND PATENT, NO INFILTRATION NOTED, ALL SAFETY MEASURES INITIATED, BELONGINGS LIST SIGNED, ID BAND ON, MED SURG PATIENT, VS TEMP 99.1, HR 70, RESP 18, O2 96% ON ROOM AIR, 92/50 0/10 PAIN, ADMISSION PACKET COMPLETED, WILL CONTINUE TO MONITOR.
[2018-02-20 17:20] VITALS: BP 92/50
[2018-02-20] MEDS ORDERED: MAGNESIUM CITRATE 296 ML BOTTLE PO ONE (17:30)
[2018-02-20] MEDS ORDERED: PEG 3350/NA SULF,BICARB,CL/KCL 4,000 ML BOTTLE PO ONE (17:30)
[2018-02-20] MEDS ORDERED: NA PHOS,M-B/NA PHOS,DI-BA 1 EA ENEMA RC PRN (17:30)
--- NOTE | 2018-02-20 17:47 | NUR ---
RN MS NOTES PATIENT ADVISED THAT MD ORDERED COLONOSCOPY BUT PATIENT REFUSING TO HAVE COLONOSCOPY ONLY WANTS EGD TO BE DONE, WILL NOTIFY MD.
[2018-02-20] MEDS: HYDROMORPHONE INJ 2 MG/ML DISP.SYRIN IV PRN ×2 (17:50→21:48)
--- NOTE | 2018-02-20 19:20 | NUR ---
RN MS ENDING NOTES GAVE REPORT TO PM NURSE, PATIENT STABLE WITH NO ACUTE DISTRESS OR PAIN NOTED, EGD CONSENT FORM IN CHART AND WAITING FOR PATIENT TO SIGN, PATIENT REFUSING COLONOSCOPY AND RUNNER MAN DEREK AWARE, NPO ORDER PLACED, CONSENT SIGNED FOR BLOOD TRANSFUSION, WILL ENDORSE TO PM NURSE FOR CONTINUE CARE.
--- NOTE | 2018-02-20 19:45 | NUR ---
MS RN NOTES: RECEIVED PT ON BED ALERT, AWAKE AND ORIENTED X3. ABLE TO MAKE NEEDS KNOWN. NO ACUTE DISTRESS NOTED. NO COMPLAINTS OF PAIN OR DISCOMFORT AT THIS TIME. ON ROOM AIR, SATURATING WELL. NO SOB NOTED. IV ON RIGHT EJ INTACT AND PATENT WITH IVF NS RUNNING AT 75ML/HR, INFUSING WELL. KEPT CLEAN, DRY AND COMFORTABLE. CALL LIGHT PLACED WITHIN REACH. SAFETY AND FALL PRECAUTIONS OBSERVED AND MAINTAINED. WILL CONTINUE TO MONITOR PT.
[2018-02-20 19:59] LABS: HEMOGLOBIN 7.3 g/dL (13.5-17.5)
[2018-02-20 20:00] VITALS: BP 113/59
[2018-02-20] MEDS: Thiamine 100 MG in IV D5W 50 ML IV SCH (20:15)
[2018-02-20] MEDS: Folic acid 1 MG in IV D5W 50 ML IV SCH (20:51)
[2018-02-20 22:03] VITALS: BP 126/65
[2018-02-20 22:20] VITALS: BP 128/64
--- NOTE | 2018-02-20 22:20 | NUR ---
MS RN NOTES: BLOOD TRANSFUSION STARTED. NO SIGNS/SYMPTOMS OF TRANSFUSION REACTION NOTED. VITAL SIGNS STABLE. WILL CONTINUE TO MONITOR PT.
[2018-02-20 23:03] VITALS: BP 129/66
[2018-02-21] VITALS (10 sets, daily range): BP systolic 124–156; BP diastolic 62–80
[2018-02-21] MEDS: HYDROMORPHONE INJ 2 MG/ML DISP.SYRIN IV PRN ×5 (01:51→20:18)
--- NOTE | 2018-02-21 06:34 | NUR ---
MS RN NOTES; NO CHANGED NOTED THROUGHOUT THE SHIFT. NO APPARENT DISTRESS NOTED. DENIES PAIN AT THIS TIME. ON ROOM AIR, SATURATING WELL. NO SOB NOTED. IV ON RIGHT EJ AND RIGHT FOREARM #20 INTACT AND PATENT, IVF NS RUNNING AT 75ML/HR, INFUSING WELL. CALL LIGHT WITHIN REACH. KEPT CLEAN, DRY AND COMFORTABLE. SAFETY AND FALL PRECAUTIONS OBSERVED AND MAINTAINED. WILL ENDORSE TO DAY SHIFT FOR CONTINUITY OF CARE.
--- NOTE | 2018-02-21 08:00 | NUR ---
PATIENT REFUSING SKIN ASSESSMENT. BENEFITS AND RISKS EXPLAINED Addendum: 02/21/18 at 1223 by SEDA PRYOR RN Amended: Links added.
--- NOTE | 2018-02-21 08:30 | NUR ---
PATIENT REFUSING BLOOD DRAW FOR LABS
--- NOTE | 2018-02-21 08:31 | NUR ---
PATIENT STATUS POST 1 PRBC TRANSFUSION
--- NOTE | 2018-02-21 08:55 | NUR ---
PATIENT PICKED UP BY OR STAFF. CONSENT IN CHART FOR EGD. VERIFIED WITH OR STAFF THAT PROCEDURE IS ONLY EGD. PATIENT REFUSING COLONOSCOPY
[2018-02-21] MEDS ORDERED: ANESTHESIA TRAY IN PYXIS 1 EA TRAY MC ONE (09:04)
[2018-02-21 09:26] LABS: ALBUMIN 3.2 g/dL (3.4-5.0); BILIRUBIN,TOTAL 0.4 mg/dL (0.2-1.0); CALCIUM, SERUM 8.6 mg/dL (8.5-10.1); CREATININE 1.2 mg/dL (0.6-1.3); PHOSPHORUS 3.6 mg/dL (2.5-4.9); POTASSIUM 4.8 mmol/L (3.5-5.1); TOTAL PROTEIN, SERUM 7.5 g/dL (6.4-8.2)
[2018-02-21 09:30] LABS: EOSINOPHILS % (AUTO) 3.1 % (0.0-6.0); HEMATOCRIT 31 % (39-51); HEMOGLOBIN 9.3 g/dL (13.5-17.5); LYMPHOCYTES # (AUTO) 0.8 /CMM (0.8-4.8); LYMPHOCYTES % (AUTO) 13.3 % (20.0-44.0); MEAN CORPUSCULAR HEMOGLOBIN 27 PG (26.0-33.0); MEAN CORPUSCULAR HGB CONC 31 g/dl (31.0-36.0); MEAN CORPUSCULAR VOLUME 89 fL (80-96); MONOCYTES # (AUTO) 0.9 /CMM (0.1-1.30); MONOCYTES % (AUTO) 15.6 % (2.0-12.0); PLATELET COUNT (AUTO) 606 /CMM (150-450); RDW COEFFICIENT OF VARIATION 19.1 (11.5-15.0); RED BLOOD CELL COUNT(AUTO) 3.45 MIL/uL (4.5-6.0); WHITE BLOOD COUNT (AUTO) 5.9 K/uL (4.3-11.0)
--- NOTE | 2018-02-21 10:17 | NUR ---
PATIENT RETURNED FROM OR, NONLABORED BREATHING. AOX4. PER DR HOFFMAN, CLEAR LIQUID DIET , START CARAFATE LIQUID 1 GM PO Q 6 HOURS RESUME ALL PREOP ORDERS
[2018-02-21] MEDS: HYDROCODONE/APAP 5/325MG 1 EACH TABLET PO PRN (10:32)
[2018-02-21] MEDS: CHLORDIAZEPOXIDE HCL 25 MG CAPSULE PO SCH ×2 (10:59→17:24)
[2018-02-21] MEDS: PANTOPRAZOLE 40 MG VIAL IV SCH ×2 (10:59→17:25)
[2018-02-21] MEDS: SUCRALFATE 1 G/10 ML UDC PO SCH ×2 (11:48→17:25)
[2018-02-21] MEDS ORDERED: SUCRALFATE 1 G TABLET PO SCH (12:00)
--- NOTE | 2018-02-21 15:54 | NUR ---
KORY MALDONADO MERCHANDISE DIRECTOR NOTIFIED THAT MICROBIOLOGY RESULTED FOR RIGHT NARE , POSITIVE FOR MRSA PER HIS ORDERS, BACTROBAN TO BE ORDERED PATIENT PLACED ON CONTACT ISOLATION
--- NOTE | 2018-02-21 16:48 | NUR ---
OB STOOL COLLECTION PATIENT EDUCATED ON OB STOOL COLLECTION ORDER. COLLECTION CUP PLACED IN BATHROOM
[2018-02-21] MEDS: LISINOPRIL (10MG) 10 MG TABLET PO SCH (17:00)
[2018-02-21] MEDS ORDERED: FERROUS SULFATE (325 MG) 325 MG/TAB TABLET PO SCH (17:00)
[2018-02-21] MEDS: PREGABALIN 25 MG CAPSULE PO SCH (17:24)
[2018-02-21] MEDS: IV NS 0.9% 1,000 ML IV PRN (17:29)
--- NOTE | 2018-02-21 19:30 | NUR ---
RN CLOSING NOTES PATIENT RESTING IN BED. NONLABORED BREATHING NOTED ON ROOM AIR. AOX4. EJ 20 PATENT AND INTACT. RIGHT IV ARM GAUGE 20. BED IN LOWEST LOCKED POSITION. CALL LIGHT WITHIN REACH. NO SIGNS OF BLEEDING NOTED DURING SHIFT. TOLERATING CLEAR DIET THROUGHOUT SHIFT. NO NAUSEA AND NO VOMITING
--- NOTE | 2018-02-21 19:31 | NUR ---
BACTROBAN NOT RECEIVED BY PHARMACY YET. SPOKE TO EUGENIO. ENDORSED TO CHU PRESTON
--- NOTE | 2018-02-21 20:45 | NUR ---
RN MS NOTES, CALLED PHARMACY AND ASKED ABOUT BACTROBAN OINTMENT, PER EUGENIO WILL DELIVER SOON.
[2018-02-21] MEDS: Folic acid 1 MG in IV D5W 50 ML IV SCH (20:57)
[2018-02-21] MEDS: MIRTAZAPINE 15 MG TABLET PO SCH (21:33)
[2018-02-21] MEDS: Thiamine 100 MG in IV D5W 50 ML IV SCH (21:33)
[2018-02-22] MEDS: SUCRALFATE 1 G/10 ML UDC PO SCH ×4 (00:29→17:35)
[2018-02-22] MEDS: HYDROMORPHONE INJ 2 MG/ML DISP.SYRIN IV PRN ×6 (00:30→20:42)
[2018-02-22 04:00] VITALS: BP 151/68
[2018-02-22] MEDS: MUPIROCIN OINT 2% 22 GM TUBE TP SCH ×3 (04:00→16:33)
--- NOTE | 2018-02-22 05:00 | NUR ---
RN MS NOTES, BACTROBAN OINTMENT NOT ADMINISTERED, AWAITING FOR PHARMACY TO DELIVER
--- NOTE | 2018-02-22 07:15 | NUR ---
BEAN SNIPPER OPENING NOTE RECEIVED PATIENT IN STABLE CONDITION RESTING IN BED, ON ROOM AIR. NO RESPIRATORY DISTRESS NOTED. IV SITES ON RIGHT EXTERNAL JUGULAR AND RIGHT FOREARM INTACT, NORMAL SALINE INFUSING AT 75ML/HR. ABLE TO MAKE NEEDS KNOWN. CALL LIGHT WITHIN REACH, BED LOW AND LOCKED, WILL CONTINUE TO MONITOR.
[2018-02-22 08:00] VITALS: BP 162/71
[2018-02-22] MEDS: PANTOPRAZOLE 40 MG VIAL IV SCH ×2 (08:53→16:31)
[2018-02-22] MEDS: FLUOXETINE HCL 20 MG CAPSULE PO SCH (08:54)
[2018-02-22] MEDS: SENNOSIDES 8.6 MG TABLET PO SCH (08:54)
[2018-02-22] MEDS: MULTIVIT, IRON, MIN NO. 8, FA 1 TAB PO SCH (08:55)
[2018-02-22] MEDS: PREGABALIN 25 MG CAPSULE PO SCH ×3 (08:56→16:33)
[2018-02-22] MEDS: VITAMIN B COMP W-C 1 TAB TABLET PO SCH (08:56)
[2018-02-22] MEDS: LISINOPRIL (10MG) 10 MG TABLET PO SCH ×2 (08:56→16:32)
[2018-02-22] MEDS: CHLORDIAZEPOXIDE HCL 25 MG CAPSULE PO SCH ×2 (08:57→16:33)
[2018-02-22 10:55] LABS: CALCIUM, SERUM 8.8 mg/dL (8.5-10.1); CREATININE 0.9 mg/dL (0.6-1.3); POTASSIUM 4.8 mmol/L (3.5-5.1)
[2018-02-22 10:56] LABS: NEUTROPHILS # (AUTO) 5.8 /CMM (1.8-8.9)
[2018-02-22 10:58] LABS: EOSINOPHILS % (AUTO) 3.5 % (0.0-6.0); HEMATOCRIT 29 % (39-51); LYMPHOCYTES # (AUTO) 0.9 /CMM (0.8-4.8); LYMPHOCYTES % (AUTO) 12.1 % (20.0-44.0); MEAN CORPUSCULAR HEMOGLOBIN 28 PG (26.0-33.0); MEAN CORPUSCULAR HGB CONC 32 g/dl (31.0-36.0); MEAN CORPUSCULAR VOLUME 90 fL (80-96); MONOCYTES # (AUTO) 0.7 /CMM (0.1-1.30); MONOCYTES % (AUTO) 8.6 % (2.0-12.0); NEUTROPHILS % (AUTO) 75.8 % (43.0-81.0); PLATELET COUNT (AUTO) 257 /CMM (150-450); RED BLOOD CELL COUNT(AUTO) 3.18 MIL/uL (4.5-6.0); WHITE BLOOD COUNT (AUTO) 7.7 K/uL (4.3-11.0)
[2018-02-22 12:21] LABS: EOSINOPHILS % (MANUAL) 3 % (0-4); LYMPHOCYTES % (MANUAL) 6 % (16-48); MONOCYTES % (MANUAL) 8 % (0-11.0); NEUTROPHILS % (MANUAL) 83 (42-76)
[2018-02-22] MEDS: IV NS 0.9% 1,000 ML IV PRN (12:34)
[2018-02-22 13:37] LABS: OCCULT BLOOD STOOL POSITIVE (NEGATIVE)
[2018-02-22] MEDS: THIAMINE HCL 100 MG TABLET PO SCH (13:49)
[2018-02-22] MEDS: FOLIC ACID 1 MG TABLET PO SCH (13:49)
--- NOTE | 2018-02-22 14:53 | NUR ---
STOCKING AND BOX SHOP SUPERVISOR NOTE PATIENT TOLERATING MECHANICAL SOFT DIET WELL.
[2018-02-22] MEDS: SOD FERRIC GLUC 125 MG in IV NS 0.9% 100 ML IV SCH (15:10)
[2018-02-22 16:00] VITALS: BP 123/60
--- NOTE | 2018-02-22 18:00 | NUR ---
CONSTRUCTION EQUIPMENT OVERHAULER NOTE INFORMED ENROLLMENT COUNSELOR OF STOOL OB TEST POSITIVE RESULT. WAS TOLD GI ON CASE AND NO NEW ORDERS AT THIS TIME.
--- NOTE | 2018-02-22 18:51 | NUR ---
BEAUTY SCHOOL INSTRUCTOR [id number] NOTE PATIENT RESTING IN BED IN STABLE CONDITION, ON ROOM AIR. NO RESPIRATORY DISTRESS NOTED. ABLE TO MAKE NEEDS KNOWN. IV SITES ON RIGHT EXTERNAL JUGULAR AND RIGHT FOREARM INTACT. NORMAL SALINE INFUSING AT 75ML/HR. BED LOW AND LOCKED, CALL LIGHT WITHIN REACH, WILL ENDORSE TO ONCOMING NURSE.
[2018-02-22 20:00] VITALS: BP 101/71
--- NOTE | 2018-02-22 20:00 | NUR ---
JOHN RN OPENING NOTE RECEIVED BEDSIDE REPORT FROM AM NURSE. PATIENT IN STABLE CONDITION RESTING IN BED, ON ROOM AIR WITH SPO2 OF >95%. NO RESPIRATORY DISTRESS NOTED.NO SOB, NO CHEST PAIN AT THIS TIME. IV SITES ON RIGHT EXTERNAL JUGULAR AND RIGHT FOREARM INTACT, NORMAL SALINE INFUSING AT 75ML/HR. PATIENT IS REFUSING SKIN ASSESSMENT AT THIS TIME WILL ASK LATER.PATIENT IS ABLE TO MAKE NEEDS KNOWN. CALL LIGHT WITHIN REACH, BED LOW AND LOCKED POSITION , WILL CONTINUE TO MONITOR.
[2018-02-22] MEDS: MIRTAZAPINE 15 MG TABLET PO SCH (22:49)
[2018-02-23] MEDS: SUCRALFATE 1 G/10 ML UDC PO SCH ×4 (00:28→17:00)
[2018-02-23] MEDS: HYDROMORPHONE INJ 2 MG/ML DISP.SYRIN IV PRN ×6 (00:29→20:40)
[2018-02-23] MEDS ORDERED: NA PHOS,M-B/NA PHOS,DI-BA 1 EA ENEMA RC PRN (00:30)
[2018-02-23] MEDS ORDERED: PEG 3350/NA SULF,BICARB,CL/KCL 4,000 ML BOTTLE PO ONE ×2 (00:30→08:30)
[2018-02-23] MEDS ORDERED: MAGNESIUM CITRATE 296 ML BOTTLE PO ONE ×2 (00:30→10:30)
[2018-02-23] MEDS: HYDROCODONE/APAP 5/325MG 1 EACH TABLET PO PRN ×4 (01:44→16:24)
--- NOTE | 2018-02-23 02:43 | NUR ---
RN NOTES PATIENT WAS ASKED FOR SKIN ASSESSMENT AND PATIENT IS STILL REFUSING IT.
[2018-02-23 04:00] VITALS: BP 148/71
[2018-02-23] MEDS: IV NS 0.9% 1,000 ML IV PRN ×2 (04:50→22:07)
[2018-02-23] MEDS: MUPIROCIN OINT 2% 22 GM TUBE TP SCH ×2 (04:51→17:03)
--- NOTE | 2018-02-23 07:10 | NUR ---
RN OPENING NOTE RECEIVED BEDSIDE REPORT FROM pm NURSE. PATIENT IN STABLE CONDITION RESTING IN BED, ON ROOM AIR. NO SOB, NO CHEST PAIN AT THIS TIME. IV SITES ON RIGHT EXTERNAL JUGULAR AND RIGHT FOREARM INTACT, NORMAL SALINE INFUSING AT 75ML/HR.PATIENT IS ABLE TO MAKE NEEDS KNOWN. CALL LIGHT WITHIN REACH, BED LOW AND LOCKED POSITION ,SRX3.ASKED TO CALL FOR HELP.PREP FOR COLONOSCOPY ON 02/24/18. WILL CONTINUE TO MONITOR.
[2018-02-23 08:00] VITALS: BP 138/72
[2018-02-23] MEDS: PANTOPRAZOLE 40 MG VIAL IV SCH ×2 (08:10→16:56)
[2018-02-23] MEDS: THIAMINE HCL 100 MG TABLET PO SCH (08:11)
[2018-02-23] MEDS: PREGABALIN 25 MG CAPSULE PO SCH ×3 (08:11→16:57)
[2018-02-23] MEDS: FOLIC ACID 1 MG TABLET PO SCH (08:11)
[2018-02-23] MEDS: FLUOXETINE HCL 20 MG CAPSULE PO SCH (08:11)
[2018-02-23] MEDS: VITAMIN B COMP W-C 1 TAB TABLET PO SCH (08:11)
[2018-02-23] MEDS: MULTIVIT, IRON, MIN NO. 8, FA 1 TAB PO SCH (08:11)
[2018-02-23] MEDS: LISINOPRIL (10MG) 10 MG TABLET PO SCH ×2 (08:11→16:56)
[2018-02-23] MEDS: SENNOSIDES 8.6 MG TABLET PO SCH (08:11)
[2018-02-23] MEDS: CHLORDIAZEPOXIDE HCL 25 MG CAPSULE PO SCH ×2 (08:15→17:00)
--- NOTE | 2018-02-23 12:00 | NUR ---
RN NOTES SEEN BY TYESHA NELSON WITH NEW ORDER FOR DILAUDID.UPDATED ABOUT PATIENT CONDITION.
[2018-02-23] MEDS: SOD FERRIC GLUC 125 MG in IV NS 0.9% 100 ML IV SCH (15:02)
[2018-02-23 16:00] VITALS: BP 148/67
[2018-02-23 18:53] LABS: EOSINOPHILS % (AUTO) 5.7 % (0.0-6.0); HEMATOCRIT 26 % (39-51); HEMOGLOBIN 7.8 g/dL (13.5-17.5); LYMPHOCYTES % (AUTO) 18.7 % (20.0-44.0); MEAN CORPUSCULAR HEMOGLOBIN 27 PG (26.0-33.0); MEAN CORPUSCULAR HGB CONC 30 g/dl (31.0-36.0); MEAN CORPUSCULAR VOLUME 90 fL (80-96); MONOCYTES # (AUTO) 0.8 /CMM (0.1-1.30); MONOCYTES % (AUTO) 15.7 % (2.0-12.0); NEUTROPHILS # (AUTO) 3.1 /CMM (1.8-8.9); NEUTROPHILS % (AUTO) 59.9 % (43.0-81.0); PLATELET COUNT (AUTO) 435 /CMM (150-450); RDW COEFFICIENT OF VARIATION 18.5 (11.5-15.0); RED BLOOD CELL COUNT(AUTO) 2.91 MIL/uL (4.5-6.0); WHITE BLOOD COUNT (AUTO) 5.2 K/uL (4.3-11.0)
[2018-02-23 19:10] LABS: POTASSIUM 4.6 mmol/L (3.5-5.1)
--- NOTE | 2018-02-23 19:37 | NUR ---
RN NOTE PM NURSE MADE AWARE ABOUT PATIENT CONCERN REGARDING PLACEMENT WANT TO TALK TO SOCIAL SERVICE.REQUESTED TO FOLLOW UP.
--- NOTE | 2018-02-23 19:37 | NUR ---
RN CLOSING NOTE . PATIENT IN STABLE CONDITION RESTING IN BED, ON ROOM AIR. NO SOB, NO CHEST PAIN AT THIS TIME. IV SITES ON RIGHT EXTERNAL JUGULAR IS INTACT AND PATENT AND RIGHT FOREARM NEED TO REPLACE.PATIENT REFUSED TO TAKE IT OUT, REFUSED TO INSERT NEW IV LINE.NORMAL SALINE INFUSING AT 75ML/HR.PATIENT IS ABLE TO MAKE NEEDS KNOWN. CALL LIGHT WITHIN REACH, BED LOW AND LOCKED POSITION ,SRX3.ASKED TO CALL FOR HELP.PREP FOR COLONOSCOPY ON 02/24/18. REFUSED MAG CITRATE.TOLD TAHT HE WILL TAKE IT LATER DINNER.ENDORSED TO PM NURSE FOR SARI,
[2018-02-23 19:53] LABS: BAND % (MANUAL) 16 % (0.0-5.0); EOSINOPHILS % (MANUAL) 4 % (0-4); LYMPHOCYTES % (MANUAL) 19 % (16-48); MONOCYTES % (MANUAL) 16 % (0-11.0); NEUTROPHILS % (MANUAL) 45 (42-76)
[2018-02-23 20:00] VITALS: BP 151/68
--- NOTE | 2018-02-23 20:00 | NUR ---
JOHN RN OPENING NOTE RECEIVED BEDSIDE REPORT FROM AM NURSE. PATIENT IN STABLE CONDITION RESTING IN BED, ON ROOM AIR WITH SPO2 OF >95%. NO RESPIRATORY DISTRESS NOTED.NO SOB, NO CHEST PAIN AT THIS TIME. IV SITES ON RIGHT EXTERNAL JUGULAR AND RIGHT FOREARM INTACT, NORMAL SALINE INFUSING AT 75ML/HR. PATIENT IS REFUSING SKIN ASSESSMENT AT THIS TIME WILL ASK LATER.PATIENT IS GOING TO HAVE COLONOSCOPY TOMORROW MORNING AT 11AM. PATIENT IS ABLE TO MAKE NEEDS KNOWN. CALL LIGHT WITHIN REACH, BED LOW AND LOCKED POSITION , WILL CONTINUE TO MONITOR.
[2018-02-23] MEDS: MIRTAZAPINE 15 MG TABLET PO SCH (22:06)
[2018-02-24] MEDS: SUCRALFATE 1 G/10 ML UDC PO SCH ×4 (00:42→17:06)
[2018-02-24] MEDS: HYDROMORPHONE INJ 2 MG/ML DISP.SYRIN IV PRN ×4 (00:47→13:59)
[2018-02-24] MEDS: HYDROCODONE/APAP 5/325MG 1 EACH TABLET PO PRN ×3 (03:13→22:48)
[2018-02-24 04:00] VITALS: BP 130/64
[2018-02-24] MEDS: MUPIROCIN OINT 2% 22 GM TUBE TP SCH ×2 (04:33→16:05)
--- NOTE | 2018-02-24 07:00 | NUR ---
RN CLOSING NOTE PATIENT IN STABLE CONDITION RESTING IN BED, ON ROOM AIR. NO SOB, NO CHEST PAIN AT THIS TIME. IV SITES ON RIGHT EXTERNAL JUGULAR IS INTACT AND PATENT AND RIGHT FOREARM NEED TO BE REMOVED.PATIENT REFUSED TO TAKE IT OUT, REFUSED TO INSERT NEW IV LINE.NORMAL SALINE INFUSING AT 75ML/HR.PATIENT IS ABLE TO MAKE NEEDS KNOWN. CALL LIGHT WITHIN REACH, BED LOW AND LOCKED POSITION ,SRX3.ASKED TO CALL FOR HELP.PREP FOR COLONOSCOPY ON 02/24/18 AT 11AM. PATIENT CARE WILL BE ENDORSED TO AM NURSE FOR SARI,
[2018-02-24 07:17] LABS: CALCIUM, SERUM 8.3 mg/dL (8.5-10.1); CREATININE 0.9 mg/dL (0.6-1.3); POTASSIUM 4.9 mmol/L (3.5-5.1)
[2018-02-24 08:00] VITALS: BP 139/67
--- NOTE | 2018-02-24 08:00 | NUR ---
JOHN RN AM NOTE RECEIVED PATIENT IN STABLE CONDITION RESTING IN BED, ON ROOM AIR WITH SPO2 OF >95%. NO RESPIRATORY DISTRESS NOTED.NO SOB, NO CHEST PAIN AT THIS TIME. IV SITES ON RIGHT EXTERNAL JUGULAR AND RIGHT FOREARM INTACT, NORMAL SALINE INFUSING AT 75ML/HR. PATIENT IS REFUSING SKIN ASSESSMENT AT THIS TIME WILL ASK LATER.PATIENT IS GOING TO HAVE COLONOSCOPY TODAY AT 11AM. ALL CONSENTS HAS BEEN SIGNED.DENIES ANY DISTRESS.PATIENT IS ABLE TO MAKE NEEDS KNOWN. CALL LIGHT WITHIN REACH, BED LOW AND LOCKED POSITION , WILL CONTINUE TO MONITOR.
--- NOTE | 2018-02-24 08:10 | NUR ---
ON NPO.PT IS COMPLIANT.UNABLE TO REMOVE PT'S RING IN THE RT HAND.INFORMED [facility].R. RN.REFUSED BLOOD DRAW FOR LABS-DR TANI VOSS.
--- NOTE | 2018-02-24 08:22 | NUR ---
PT REFUSED BLOOD DRAW FOR AM LABS INSPITE OF EXPLAINING ITS BENEFITS AND IMPORTANCE-PT INSISTS TO REFUSE.HGB IS 7.8 FROM YESTERDAY.
[2018-02-24] MEDS: FOLIC ACID 1 MG TABLET PO SCH (08:32)
[2018-02-24] MEDS: PANTOPRAZOLE 40 MG VIAL IV SCH (08:32)
[2018-02-24] MEDS: LISINOPRIL (10MG) 10 MG TABLET PO SCH ×2 (08:32→16:07)
[2018-02-24] MEDS: CHLORDIAZEPOXIDE HCL 25 MG CAPSULE PO SCH ×2 (08:32→16:07)
[2018-02-24] MEDS: PREGABALIN 25 MG CAPSULE PO SCH ×4 (08:32→16:07)
[2018-02-24] MEDS: THIAMINE HCL 100 MG TABLET PO SCH (08:33)
[2018-02-24] MEDS: MULTIVIT, IRON, MIN NO. 8, FA 1 TAB PO SCH (08:33)
[2018-02-24] MEDS: SENNOSIDES 8.6 MG TABLET PO SCH (08:33)
[2018-02-24] MEDS: VITAMIN B COMP W-C 1 TAB TABLET PO SCH (08:33)
[2018-02-24] MEDS: FLUOXETINE HCL 20 MG CAPSULE PO SCH (08:33)
[2018-02-24 08:36] LABS: HEMOGLOBIN 8.3 g/dL (13.5-17.5); RED BLOOD CELL COUNT(AUTO) 2.93 MIL/uL (4.5-6.0)
[2018-02-24 08:37] LABS: HEMATOCRIT 26 % (39-51); MEAN CORPUSCULAR HEMOGLOBIN 28 PG (26.0-33.0); MEAN CORPUSCULAR HGB CONC 32 g/dl (31.0-36.0); MEAN CORPUSCULAR VOLUME 89 fL (80-96); PLATELET COUNT (AUTO) 335 /CMM (150-450); RDW COEFFICIENT OF VARIATION 18.6 (11.5-15.0)
[2018-02-24 09:05] LABS: EOSINOPHILS % (MANUAL) 7 % (0-4); LYMPHOCYTES % (MANUAL) 21 % (16-48); MONOCYTES % (MANUAL) 19 % (0-11.0); NEUTROPHILS % (MANUAL) 53 (42-76)
--- NOTE | 2018-02-24 11:47 | NUR ---
KRISTIE received a call from pt's RN Carol informing SW that pt. would like to speak with her regarding housing. KRISTIE met with pt. bedside. Pt. is alert and oriented x 4. Pt. was inquiring as to where he was going to be discharged to. KRISTIE informed pt. he will be going to an independent living located in [place]. Pt. did mention to him that he spoke to an windows administrator named Eligio voss who did come to see him. Pt. states he only receives $100/ month because he is being sued by his for child support. KRISTIE informed pt. she will speak to case planner Veronica regarding his discharge plan. Pt. states he has section 8 and will need to find senior housing.
[2018-02-24] MEDS ORDERED: ANESTHESIA TRAY IN PYXIS 1 EA TRAY MC ONE ×2 (11:53→12:00)
--- NOTE | 2018-02-24 12:00 | NUR ---
PT WENT TO O.R. FOR COLONOSCOPY PROCEDURE.ON NPO.WITH STABLE V/S.
--- NOTE | 2018-02-24 13:25 | NUR ---
PT JUST ARRIVED FROM O.R. S/P COLONOSCOPY BY DR ELIZALDE.WITH STABLE V/S.PT ALREADY ASKING FOR HIS DILAUDID SHOT PRN FOR GEN BODY PAIN.
[2018-02-24] MEDS: SOD FERRIC GLUC 125 MG in IV NS 0.9% 100 ML IV SCH (14:00)
--- NOTE | 2018-02-24 14:54 | NUR ---
PT'S RT NECK EJ HEPLOCK GOT DISLODGED AND MADE SEVERAL ATTEMPTS IN INSERTING A NEW ONE-INFORMED DR FREIRE WITH ORDERS TO DC IVF AND IV MEDS.PT DRINKS A LOT OF FLUIDS.
[2018-02-24 16:00] VITALS: BP 150/74
[2018-02-24 20:00] VITALS: BP 131/60
--- NOTE | 2018-02-24 20:20 | NUR ---
RN NOTES RECEIVED PATIENT COMFORTABLY SLEEPING IN BED WITH NO DISTRESS NOTED. BREATHING EVEN AND UNLABORED. ALERT AND ORIENTED, VERBALLY ABLE TO COMMUNICATE NEEDS. NO COMPLAINT OF PAIN OR DISCOMFORT. KEPT CLEAN AND DRY. WILL CONTINUE TO MONITOR.
[2018-02-24] MEDS: MIRTAZAPINE 15 MG TABLET PO SCH (22:48)
[2018-02-25] MEDS: SUCRALFATE 1 G/10 ML UDC PO SCH ×3 (02:38→13:26)
[2018-02-25 04:00] VITALS: BP 136/63
[2018-02-25] MEDS: MUPIROCIN OINT 2% 22 GM TUBE TP SCH (05:23)
[2018-02-25] MEDS: HYDROCODONE/APAP 5/325MG 1 EACH TABLET PO PRN ×2 (06:29→11:35)
[2018-02-25] MEDS ORDERED: PANTOPRAZOLE 40 MG TABLET.DR PO SCH (07:30)
--- NOTE | 2018-02-25 07:59 | NUR ---
PODIATRIC PHYSICIAN OPENING NOTE RECEIVED PATIENT RESTING IN BED, ON ROOM AIR. NO RESPIRATORY DISTRESS NOTED, NO COMPLAINT OF PAIN. CALL LIGHT WITHIN REACH, BED LOW AND LOCKED, WILL CONTINUE TO MONITOR.
[2018-02-25 08:00] VITALS: BP 136/69
[2018-02-25] MEDS: SENNOSIDES 8.6 MG TABLET PO SCH (09:22)
[2018-02-25] MEDS: CHLORDIAZEPOXIDE HCL 25 MG CAPSULE PO SCH (09:23)
[2018-02-25] MEDS: PREGABALIN 25 MG CAPSULE PO SCH ×2 (09:23→13:26)
[2018-02-25] MEDS: VITAMIN B COMP W-C 1 TAB TABLET PO SCH (09:23)
[2018-02-25] MEDS: FLUOXETINE HCL 20 MG CAPSULE PO SCH (09:23)
[2018-02-25] MEDS: FOLIC ACID 1 MG TABLET PO SCH (09:23)
[2018-02-25] MEDS: MULTIVIT, IRON, MIN NO. 8, FA 1 TAB PO SCH (09:23)
[2018-02-25] MEDS: THIAMINE HCL 100 MG TABLET PO SCH (09:23)
[2018-02-25 09:24] VITALS: BP 136/69
[2018-02-25] MEDS: LISINOPRIL (10MG) 10 MG TABLET PO SCH (09:24)
--- NOTE | 2018-02-25 13:40 | NUR ---
MC KAY STITCHER CLOSING NOTE PATIENT PREPARED FOR DISCHARGE, EXITCARE DONE, PAPERWORK AND DISCHARGE INSTRUCTIONS PROVIDED, EXPLAINED, AND SIGNED. NO DISTRESS NOTED, NO COMPLAINT OF PAIN. PATIENT REFUSED TO HAVE ONE LAST SET OF VITAL SIGNS TAKEN. NO IV SITE TO REMOVE. BELONGINGS LIST REVIEWED, PATIENT LEFT VIA AMBULANCE IN STABLE CONDITION IN A WHEELCHAIR WITH BELONGINGS TO [facility] AT [address] [place] [address] AT 13:30.
== END 2018-02-25 13:35 | disposition home or self-care (01) | DRG 432 ==
LOC: ER 12:57 → MEDSG1 15:52
PROVIDERS: ADMIT Nurse Practitioner Acute Care; ATTEND Nurse Practitioner Acute Care
PROC: 30233N1 Transfusion of Nonautologous Red Blood Cells into Peripheral Vein, Percutaneous Approach (ICD-10-PCS; 2018-02-20)
PROC: 0DB78ZX Excision of Stomach, Pylorus, Via Natural or Artificial Opening Endoscopic, Diagnostic (ICD-10-PCS; 2018-02-21)
PROC: 0DB48ZX Excision of Esophagogastric Junction, Via Natural or Artificial Opening Endoscopic, Diagnostic (ICD-10-PCS; 2018-02-21)
PROC: 0DB98ZX Excision of Duodenum, Via Natural or Artificial Opening Endoscopic, Diagnostic (ICD-10-PCS; principal; 2018-02-21 09:00)
PROC: 0DJD8ZZ Inspection of Lower Intestinal Tract, Via Natural or Artificial Opening Endoscopic (ICD-10-PCS; 2018-02-24)
DX: K70.30 Alcoholic cirrhosis of liver without ascites (principal); I85.11 Secondary esophageal varices with bleeding; N17.0 Acute kidney failure with tubular necrosis; K29.71 Gastritis, unspecified, with bleeding; E44.1 Mild protein-calorie malnutrition; K92.0 Hematemesis; Z68.1 Body mass index [BMI] 19.9 or less, adult; I25.10 Atherosclerotic heart disease of native coronary artery without angina pectoris; I10 Essential (primary) hypertension; F17.200 Nicotine dependence, unspecified, uncomplicated; F10.10 Alcohol abuse, uncomplicated; D64.9 Anemia, unspecified; E16.2 Hypoglycemia, unspecified; K57.90 Diverticulosis of intestine, part unspecified, without perforation or abscess without bleeding; K44.9 Diaphragmatic hernia without obstruction or gangrene; D69.59 Other secondary thrombocytopenia; K64.8 Other hemorrhoids; J02.9 Acute pharyngitis, unspecified; K20.9 Esophagitis, unspecified
CPT/HCPCS: 36415; 71045-TC; 80048-TC; 80053-TC; 80076-TC; 82272-TC; 82378; 82728-TC; 82746; 83540-TC; 83735-TC; 84100-TC; 84484-TC; 85025-TC; 85027-TC; 85730-TC; 86850-TC; 86921-TC; 87081-TC; 88304-TC; 88313-TC; 88342; A4606; A6402; C9113; G0480; J1170; J2354; J2704; J2916; J3411; J3490; J7030; J7060; P9016-BL; Z7610

== ENCOUNTER 2018-05-25 20:32 | Emergency (ER) | payer MEDICARE, OTHER ==
[~2018-05-25] VITALS: Ht 180.3 cm; Wt 56.7 kg
[~2018-05-25 20:32] MED LIST changes: -BACL5TAB PO; -SENN-167 PO; +SENN-168 PO
--- NOTE | 2018-05-25 20:49 | NUR ---
PT BIBA, C/O STATED OTHER, VS STABLE, PLACED IN ER BED 15, SEEN AND EVAL BY ER BRICE PATRICIA, AWAITING ORDERS.
--- NOTE | 2018-05-25 21:08 | NUR ---
TAKEN TO CT HEAD WO CONTRAST.
[2018-05-25 21:38] LABS: BASOPHILS # (AUTO) 0.2 /CMM (0.0-0.2); BASOPHILS % (AUTO) 1.7 % (0.0-2.0); EOSINOPHILS % (AUTO) 0.6 % (0.0-6.0); HEMATOCRIT 27 % (39-51); HEMOGLOBIN 8.3 g/dL (13.5-17.5); LYMPHOCYTES # (AUTO) 0.6 /CMM (0.8-4.8); LYMPHOCYTES % (AUTO) 5.2 % (20.0-44.0); MEAN CORPUSCULAR HGB CONC 31 g/dl (31.0-36.0); MEAN CORPUSCULAR VOLUME 85 fL (80-96); MONOCYTES # (AUTO) 2.8 /CMM (0.1-1.30); MONOCYTES % (AUTO) 24.9 % (2.0-12.0); NEUTROPHILS # (AUTO) 7.6 /CMM (1.8-8.9); NEUTROPHILS % (AUTO) 67.6 % (43.0-81.0); PLATELET COUNT (AUTO) 494 /CMM (150-450); RED BLOOD CELL COUNT(AUTO) 3.11 MIL/uL (4.5-6.0); WHITE BLOOD COUNT (AUTO) 11.3 K/uL (4.3-11.0)
[2018-05-25 21:50] LABS: CARBON DIOXIDE 23 mmol/L (21-32); CHLORIDE 101 mmol/L (98-107); CREATININE 2.5 mg/dL (0.6-1.3); GLUCOSE 92 mg/dL (74-106); POTASSIUM 3.3 mmol/L (3.5-5.1); SODIUM SERUM 140 mmol/L (136-145); UREA NITROGEN, BLOOD 37 mg/dL (7-18)
[2018-05-25 21:56] LABS: ALANINE AMINOTRANSFERASE 23 U/L (12-78); ALBUMIN 3.3 g/dL (3.4-5.0); ALCOHOL, BLOOD < 3 mg/dL (0-0); ALKALINE PHOSPHATASE 95 U/L (46-116); ASPARTATE AMINOTRANSFERASE 54 U/L (15-37); BILIRUBIN,DIRECT 0.1 mg/dL (0.0-0.2); BILIRUBIN,TOTAL 0.4 mg/dL (0.2-1.0); TOTAL PROTEIN, SERUM 7.4 g/dL (6.4-8.2)
[2018-05-25 21:59] LABS: SALICYLATE 1.9 mg/dL (2.8-20.0)
[2018-05-25 22:17] LABS: APPEARANCE,URINE CLEAR (CLEAR); BILIRUBIN,URINE 2+ (NEGATIVE); BLOOD, URINE TRACE-INTA Ery/uL (NEGATIVE); COLOR,URINE YELLOW (YELLOW); KETONES,URINE TRACE (NEGATIVE); LEUKOCYTE ESTERASE ,URINE NEGATIVE (NEGATIVE); NITRITE, URINE NEGATIVE (NEGATIVE); PROTEIN,URINE 1+ mg/dl (NEGATIVE); UGLUCOSE NEGATIVE (NEGATIVE); UROBILINOGEN,URINE 0.2 EU/dL (0.2)
[2018-05-25] MEDS ORDERED: IV NS 0.9% 1,000 ML BAG IV ONE (22:30)
[2018-05-25 22:33] LABS: BACTERIA,URINE Few /HPF (None Seen); SQUAMOUS EPITHELIAL CELL,UR Few /HPF (None Seen)
[2018-05-25 22:37] LABS: ACETAMINOPHEN 0 ug/ml (10-30)
--- NOTE | 2018-05-26 07:21 | NUR ---
Patient discharged to home in stable condition. Able to wheel himself on wheel chair with no assistance, vs stable, Written and verbal after care instructions given. Patient verbalizes understanding of instruction.
[2018-05-26 07:25] VITALS: BP 124/89
== END 2018-05-26 07:29 | disposition home or self-care (01) ==
LOC: ER 20:35
DX: T50.995A Adverse effect of other drugs, medicaments and biological substances, initial encounter (principal); F10.10 Alcohol abuse, uncomplicated; F15.10 Other stimulant abuse, uncomplicated; F11.10 Opioid abuse, uncomplicated; F13.10 Sedative, hypnotic or anxiolytic abuse, uncomplicated; I10 Essential (primary) hypertension; F17.200 Nicotine dependence, unspecified, uncomplicated; R51 Headache; Y90.0 Blood alcohol level of less than 20 mg/100 ml; Z96.651 Presence of right artificial knee joint; Z96.641 Presence of right artificial hip joint; Z91.013 Allergy to seafood; Y92.89 Other specified places as the place of occurrence of the external cause
CPT/HCPCS: 36415; 70450-TC; 80048-TC; 80076-TC; 80305; 81000-TC; 85025-TC; A4606; G0480; J7030; Z7610